=== PATIENT | male | born 1985 | race African-American/Black ===

== ENCOUNTER 2021-09-06 23:02 | Emergency (ER) | payer SELFPAY ==
[~2021-09-06] VITALS: Ht 188 cm; Wt 86.0 kg
[2021-09-06 23:05] VITALS: BP 128/87
--- NOTE | 2021-09-06 23:29 | PHYS DOC ---
Past Medical History Past Medical History: No Pertinent History (MICHAEL CABRAL APRN) Past Surgical History: Other Additional Past Surgical Histo: MCL (MICHAEL CABRAL APRN) General Adult EDM: Chief Complaint: MEDICAL CLEARANCE HPI: HPI: Patient is a 35-year-old male that presents today with [place] [employer] after having a dog bite. The report from the police department branch customer service representative states that patient was running and was chased down by the police dog that brought the patient down by biting him on his right leg, patient is here for evaluation and treatment of that dog bite. Patient also states he is having difficulty walking on the leg due to pain, Police Department representa gogo states the patient did walk after the bite initially on the scene, he has been unable to walk since they got him in the patrol car. Patient states he is unsure when his last tetanus shot was. There is no uncontrolled bleeding at this time. The dog that bit the patient is up-to-date on all vaccines per [place] [employer] branch customer service representative (MICHAEL CABRAL APRN) Review of Systems: Review of Systems: Constitutional: Denies fever or chills. [] Eyes: Denies change in visual acuity. [] HENT: Denies nasal congestion or sore throat. [] Respiratory: Denies cough or shortness of breath. [] Cardiovascular: Denies chest pain or edema. [] GI: Denies abdominal pain, nausea, vomiting, bloody stools or diarrhea. [] : Denies dysuria. [] Musculoskeletal: Right leg pain Integument: Dog bite Neurologic: Denies headache, focal weakness or sensory changes. [] Endocrine: Denies polyuria or polydipsia. [] Lymphatic: Denies swollen glands. [] Psychiatric: Denies depression or anxiety. [] (MICHAEL CABRAL BIOMETRICS INSTRUCTOR) Heart Score: C/O Chest Pain: N/A Risk Factors: Risk Factors: DM, Current or recent (<one month) smoker, HTN, HLP, family history of CAD, obesity. Risk Scores: Score 0 - 3: 2.5% MACE over next 6 weeks - Discharge Home Score 4 - 6: 20.3% MACE over next 6 weeks - Admit for Clinical Observation Score 7 - 10: 72.7% MACE over next 6 weeks - Early Invasive Strategies (MICHAEL CABRAL BIOMETRICS INSTRUCTOR) Physical Exam: PE: Constitutional: Well developed, well nourished, no acute distress, non-toxic appearance. [] HENT: Normocephalic, atraumatic, bilateral external ears normal, oropharynx moist, no oral exudates, nose normal. [] Eyes: PERRLA, EOMI, conjunctiva normal, no discharge. [] Neck: Normal range of motion, no tenderness, supple, no stridor. [] Cardiovascular:Heart rate regular rhythm, no murmur [] Lungs & Thorax: Bilateral breath sounds clear to auscultation [] Abdomen: Bowel sounds normal, soft, no tenderness, no masses, no pulsatile masses. [] Skin: Warm, dry, no erythema, no rash. [] Back: No tenderness, no CVA tenderness. [] Extremities: Right leg tenderness with palpation, multiple puncture wounds noted from an animal bite, 11 in number all less than 1 cm in length. Patient is able to extend and bend the leg without any difficulty, capillary refill distal to the injury is less than 2 seconds dorsalis pedis pulse is 2+, sensation distal to the injury is intact. Neurologic: Alert and oriented X 3, normal motor function, normal sensory function, no focal deficits noted. [] Psychologic: Affect normal, judgement normal, mood normal. [] (MICHAEL CABRAL BIOMETRICS INSTRUCTOR) Current Patient Data: Vital Signs: Vital Signs Date Time Temp Pulse Resp B/P (MAP) Pulse Ox O2 Delivery O2 Flow Rate FiO2 09/06/21 23:05 97.9 85 18 128/87 (101) 97 Room Air 97.9 (MICHAEL CABRAL BIOMETRICS INSTRUCTOR) EKG: EKG: [] (MICHAEL CABRAL BIOMETRICS INSTRUCTOR) Radiology/Procedures: Radiology/Procedures: REASON: dog bite PROCEDURE: KNEE RIGHT 3V KNEE 3 VIEWS RIGHT Clinical Indication: Reason: dog bite / Spl. Instructions: / History: Comparison: None. Findings: There is no acute fracture or dislocation. There is joint space narrowing and marginal osteophytes of all 3 compartments. The patella is in anatomic position. There is subcutaneous air lateral and posterior to the distal femur. No radiopaque foreign body is identified. There is no joint effusion. IMPRESSION: 1. No acute fracture. 2. Moderate arthropathy. Electronically signed by: Rodger Faustin MD (09/06/2021 11:45 PM) [facility] [] (MICHAEL CABRAL APRN) Course & Med Decision Making: Course & Med Decision Making Pertinent Labs and Imaging studies reviewed. (See chart for details) wounds were cleansed by nursing staff with high pressure irrigation, FLAKITO was applied and dressing applied. Reviewed radiological results with patient informing him that there is no acute fracture at the bite site. Patient was instructed to keep wounds clean and dry, he is to take Augmentin twice daily for 10 full days, he was also given a list of clinics because he has no primary care physician to follow-up with for further management of these dog bites. Patient was also instructed to return to the emergency department for any signs and symptoms of infection, fever, or any other concerns you may have. Patient was released into [place] police custody. (MICHAEL CABRAL APRN) Course & Med Decision Making I have reviewed the PA/DIRECTOR PRINT's note and plan of care. I agree with the clinical impression, plan, and disposition with the following additions: I evaluated the patient he had multiple puncture wounds above the right knee, primarily on the lateral aspect of the leg. No wounds seem to be overlying the joint space, and no air or effusion was seen on the knee x-ray to suggest joint space violation. (MARISOL MATOS MD) Dragon Disclaimer: Dragon Disclaimer: This electronic medical record was generated, in whole or in part, using a voice recognition dictation system. (MICHAEL CABRAL APRN) Departure Departure Impression: Primary Impression: Dog bite of extremity Disposition: 01 HOME / SELF CARE / HOMELESS Condition: STABLE Patient Instructions: Animal Bite Additional Instructions: Keep wound clean and dry Clean twice daily with mild soap and water,. Augmentin take 1 tablet twice daily for 10 days [id number] Tylenol and/or ibuprofen as needed for pain Follow-up with your primary care physician or one of the physicians in the brochure provided for further management of this. Return to the emergency department for any signs and symptoms of infection which may include increased pain, swelling at the sites, redness at the sites, warmth at the site, development of fever and any foul odor or drainage from site Scripts Amoxicillin/Potassium Clav (AUGMENTIN 875-125 TABLET) 1 Each Tablet 1 TAB PO BID for 10 Days, #20 TAB 0 Refills Prov: MICHAEL CABRAL APRN 09/06/21 MICHAEL CABRAL APRN Sep 06, 2021 23:29 MARISOL MATOS MD Sep 07, 2021 02:55
[2021-09-06] MEDS ORDERED: NEOMY/BACITR/POLYMYXIN OINT PACKET. TP ONE (23:45)
[2021-09-06] MEDS ORDERED: DIPHTH,PERTUSS(ACELL),TET TOX 0.5 ML DISP.SYRIN. VAX IM ONE (23:45)
--- NOTE | 2021-09-06 23:47 | RAD ---
KNEE 3 VIEWS RIGHT Clinical Indication: Reason: dog bite / Spl. Instructions: / History: Comparison: None. Findings: There is no acute fracture or dislocation. There is joint space narrowing and marginal osteophytes of all 3 compartments. The patella is in anatomic position. There is subcutaneous air lateral and poste rior to the distal femur. No radiopaque foreign body is identified. There is no joint effusion. IMPRESSION: 1. No acute fracture. 2. Moderate arthropathy. Electronically signed by: Rodger Faustin MD (09/06/2021 11:45 PM) [facility]
[2021-09-06] MEDS ORDERED: AMOX1TAB61 PO (23:57)
[2021-09-07] MEDS ORDERED: AMOXICILLIN/K CLAV 875/125MG TABLET. PO ONE (00:30)
[2021-09-07] MEDS ORDERED: IBUPROFEN 200 MG TABLET. PO ONE (00:30)
== END 2021-09-07 00:20 | disposition home or self-care (01) ==
LOC: ER 23:02
DX: S81.851A Open bite, right lower leg, initial encounter (principal); W54.0XXA Bitten by dog, initial encounter; Y93.89 Activity, other specified; Y92.89 Other specified places as the place of occurrence of the external cause; Y99.8 Other external cause status
CPT/HCPCS: 73562; 90471; 90715; 99284